=== PATIENT | male | born 1965 | race Caucasian/White ===

== ENCOUNTER 2016-09-30 14:10 | Emergency (ER) | payer OTHER | END 2016-09-30 16:36 | disposition home or self-care (01) | LOC: FER 14:10 | DX: M77.52 Other enthesopathy of left foot and ankle (principal); M77.51 Other enthesopathy of right foot and ankle; I10 Essential (primary) hypertension; Z88.8 Allergy status to other drugs, medicaments and biological substances | CPT/HCPCS: 73630; 99284 ==

== ENCOUNTER 2022-01-09 17:01 | Emergency (ER) | payer OTHER ==
[~2022-01-09 17:01] MED LIST: AUGMENTIN 875-1 EACH PO; COZAAR 25MG TAB25 MG PO; HCTZ12.5 MG PO
[2022-01-09 18:20] LABS: BASOPHIL 0.5 % (0-2); EOSINOPHIL 0.7 % (0-5); HGB 16.1 g/dl (13.2-18.0); LYMPHOCYTE 24.1 % (15-48); MCH 31.6 pg (25.0-31.0); MCHC 34.3 g/dL (32.0-36.0); MCV 92.2 fL (78.0-100.0); MONOCYTE 8.5 % (0-12); MPV 9.5 fL (6.0-9.5); NEUTROPHIL 65.9 % (41-80); NRBC 0; PLT 218 K/uL (150-400); RDW 12.3 % (11.5-14.0); WBC 5.9 K/uL (4.0-10.5)
[2022-01-09 18:37] LABS: ALBUMIN 4.3 g/dL (3.4-5.0); BILIRUBIN - TOTAL 0.6 mg/dL (0.2-1.0); BUN/CREAT RATIO (CALC) 21.1 RATIO; CREATININE 0.95 mg/dL (0.67-1.17); GLOBULIN (CALCULATION) 3.5 g/dL; POTASSIUM 3.9 mmol/L (3.5-5.1); TOTAL PROTEIN 7.8 g/dL (6.4-8.2)
[2022-01-09 19:05] LABS: BILIRUBIN NEGATIVE (NEGATIVE); BLOOD NEGATIVE Ery/uL (NEGATIVE); CLARITY CLEAR (CLEAR); COLOR YELLOW (YELLOW); GLUCOSE (U) NORMAL (NORMAL); LEUKOCYTES NEGATIVE Leu/uL (NEGATIVE); NITRITE NEGATIVE (NEGATIVE); PROTEIN NEGATIVE (NEGATIVE); SPECIFIC GRAVITY >=1.030 (1.001-1.030); UROBILINOGEN 0.2 mg/dL (0.2-1.0)
[2022-01-09 19:13] LABS: ECSTASY (MDMA) NEGATIVE (NEGATIVE); MARIJUANA (THC) NEGATIVE (NEGATIVE); METHADONE NEGATIVE (NEGATIVE); OPIATES NEGATIVE (NEGATIVE)
[2022-01-09 19:14] LABS: AMPHETAMINES NEGATIVE (NEGATIVE); BARBITURATES NEGATIVE (NEGATIVE); OXYCODONE NEGATIVE (NEGATIVE)
== END 2022-01-09 21:50 | disposition home or self-care (01) ==
LOC: FER 17:01
PROVIDERS: Emergency Medicine
DX: E86.0 Dehydration (principal); I10 Essential (primary) hypertension; Z88.5 Allergy status to narcotic agent; Z28.310 Unvaccinated for COVID-19
CPT/HCPCS: 36415; 70450; 80053; 80305; 81003; 84484; 85025; 93005